=== PATIENT | male | born 1995 | race Caucasian/White ===

== ENCOUNTER 2017-05-31 19:14 | Emergency (ER) | payer OTHER ==
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
[2017-05-31 19:29] VITALS: RESP 18; TEMP 97.5
[2017-05-31] MEDS ORDERED: KETOROLAC 30 MG/1 ML SDV IVP ONE (19:40)
[2017-05-31] MEDS ORDERED: KETOROLAC 30 MG/1 ML SDV ONE (19:42)
[2017-05-31 20:30] VITALS: BP 147/84; PULSE 94; O2SAT 99
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
== END 2017-05-31 20:30 | disposition home or self-care (01) ==
DX: S31.139A Puncture wound of abdominal wall without foreign body, unspecified quadrant without penetration into peritoneal cavity, initial encounter (principal); W34.00XA Accidental discharge from unspecified firearms or gun, initial encounter
CPT/HCPCS: 82947-QW; 96374; J1885